=== PATIENT | male | born 1970 | race Caucasian/White ===

== ENCOUNTER 2019-06-12 13:28 | Emergency (ER) | payer MEDICARE, MEDICAID ==
[~2019-06-12] VITALS: Ht 162.6 cm; Wt 72.0 kg
[2019-06-12] MEDS ORDERED: LORazepam 1MG TABLET PO ONE (13:30)
--- NOTE | 2019-06-12 13:37 | NUR ---
PT BIB BY JOS[facility] FOR SOB. PT IS 100% ON ROOM AIR. PT STATED "I HAVE ANXIETY OVER MY LIVING SITUATION AND THIS VIRUS". EKG COMPLETE. PT IS CONNECTED TO ANSWERING SERVICE AGENT.
[2019-06-12] MEDS ORDERED: LORazepam 1MG TABLET ONE (13:40)
--- NOTE | 2019-06-12 13:43 | NUR ---
PT MEDICATD PER MAR
[2019-06-12 13:56] LABS: BASOPHILS # (AUTO) 0.02 x10^3/uL (0-0.1); BASOPHILS % (AUTO) 0 % (0-1); EOSINOPHILS # (AUTO) 0.26 x10^3/uL (0-0.4); EOSINOPHILS % (AUTO) 4 % (1-7); LYMPHOCYTES # (AUTO) 1.73 x10^3/uL (1-3.4); LYMPHOCYTES % (AUTO) 23 % (22-44); MD NO; MEAN CORPUSCULAR HEMOGLOBIN 28.5 pg (27.5-34.5); MEAN CORPUSCULAR VOLUME 89.1 fL (81-97); MONOCYTES # (AUTO) 0.25 x10^3/uL (0.2-0.8); MONOCYTES % (AUTO) 3 % (2-9); NEUTROPHILS % (AUTO) 70 % (42-75); PLATELET COUNT 506 x10^3/uL (130-400); RED BLOOD COUNT 4.73 x10^6/uL (4.38-5.82); RED CELL DISTRIBUTION WIDTH 17.4 % (9.4-14.8)
[2019-06-12 14:04] LABS: ALBUMIN 3.7 g/dL (3.4-5.0); ANION GAP 9 mmol/L (5-15); CALCIUM 9.3 mg/dL (8.5-10.1); CHLORIDE 107 mmol/L (98-107); CREATININE 0.93 mg/dL (0.7-1.3)
[2019-06-12 14:08] LABS: TROPONIN I < 0.015 ng/mL (0.000-0.045)
[2019-06-12 15:04] VITALS: BP 156/97
== END 2019-06-12 15:06 | disposition home or self-care (01) ==
LOC: ED 14:19
DX: F41.1 Generalized anxiety disorder (principal); I10 Essential (primary) hypertension; F17.200 Nicotine dependence, unspecified, uncomplicated; E78.00 Pure hypercholesterolemia, unspecified; R94.31 Abnormal electrocardiogram [ECG] [EKG]
CPT/HCPCS: 36415; 71045; 80048; 82040; 84484; 85025; 93005; 99285

== ENCOUNTER 2019-06-17 11:47 | Emergency (ER) | payer MEDICARE, MEDICAID ==
[~2019-06-17] VITALS: Ht 162.6 cm; Wt 75.5 kg
[2019-06-17] MEDS ORDERED: FLUO90CA5 PO (12:15)
[2019-06-17] MEDS ORDERED: CEPH-368 PO (12:15)
[2019-06-17] MEDS ORDERED: ATOR-2 PO (12:15)
[2019-06-17] MEDS ORDERED: OMEP-110 PO (12:15)
[2019-06-17] MEDS ORDERED: PROP5POW PO (12:15)
[2019-06-17] MEDS ORDERED: AMLO10TA8 PO (12:15)
[2019-06-17] MEDS ORDERED: GABA300S PO (12:15)
[2019-06-17] MEDS ORDERED: QUET25TA70 PO (12:15)
[2019-06-17] MEDS ORDERED: TAMS-11 PO (12:15)
[2019-06-17] MEDS ORDERED: ONDANSETRON 2MG/ML, 2ML ONE (12:19)
[2019-06-17] MEDS ORDERED: ONDANSETRON 2MG/ML, 2ML IVPush ONE (12:30)
[2019-06-17] MEDS ORDERED: SODIUM CHLORIDE 0.9% 1,000ML IVBOLUS ONE (12:30)
[2019-06-17] MEDS ORDERED: SODIUM CHLORIDE FLUSH 10ML SYR IVF ONE (12:30)
--- NOTE | 2019-06-17 12:45 | NUR ---
PT TO ROOM 35 VIA [facility], BUT WALKING WITHOUT DIFF. PT BEING SEEN TODAY, DUE TO N/V X2 HOURS, AND HAS BEEN EXPOSED TO HIS ROOMMATE WHOM HAS FLU LIKE SYMPTOMS AND WAS OFFICIALLY TESTED FOR COVID TODAY. PT TOOK CRYSTAL METH AND HEROINE YESTERDAY, AND SMOKED MARIJUANA TODAY. PT VERY ANXIOUS FROM ALL THE DRUGS AND IS REQUESTING SOMETHING TO HELP CALM HIM DOWN. IV PLACED, LAB DRAWN, EKG DONE, MONITOR APPLIED, GOWN ON, WARM BLANKET AND CALL LIGHT GIVEN. IV MEDICATIONS GIVEN AND BOLUS STARTED WITHOUT DIFF. WILL CONTINUE TO MONITOR.
[2019-06-17 12:46] LABS: MEAN CORPUSCULAR HEMOGLOBIN 28.7 pg (27.5-34.5); MEAN CORPUSCULAR HGB CONC 33.1 g/dL (33.2-36.2); MEAN CORPUSCULAR VOLUME 86.6 fL (81-97); MEAN PLATELET VOLUME 7.1 fL (7.4-10.4); PLATELET COUNT 502 x10^3/uL (130-400); RED BLOOD COUNT 4.43 x10^6/uL (4.38-5.82); RED CELL DISTRIBUTION WIDTH 17.2 % (9.4-14.8)
[2019-06-17 12:51] LABS: RAPID INFLUENZA A Negative (Negative); RAPID INFLUENZA B Negative (Negative)
[2019-06-17 12:54] LABS: ALANINE AMINOTRANSFERASE 22 U/L (12-78); ANION GAP 6 mmol/L (5-15); CALCIUM 9.6 mg/dL (8.5-10.1); CHLORIDE 102 mmol/L (98-107)
[2019-06-17 12:56] LABS: ALKALINE PHOSPHATASE 91 U/L (45-117); BILIRUBIN,TOTAL 0.8 mg/dL (0.2-1.0); TOTAL PROTEIN 7.7 g/dL (6.4-8.2)
[2019-06-17 13:09] LABS: MD YES
[2019-06-17 13:39] LABS: BAND#(MANUAL) 1.71 x10^3/uL; BANDS%(MANUAL) 14 % (0-7); LYMPH#(MANUAL) 0.49 x10^3/uL (1-3.4); LYMPHS% (MANUAL) 4 % (22-44); MONOS#(MANUAL) 1.34 x10^3/uL (0.3-2.7); MONOS% (MANUAL) 11 % (2-9); SEG#(MANUAL) 8.66 x10^3/uL (1.8-6.8); SEGS% (MANUAL) 71 % (42-75)
[2019-06-17 13:40] LABS: <PLATELET ESTIMATE> INCREASED; <PLT MORPHOLOGY> NORMAL PLT MORPH; <RBC MORPHOLOGY> NORMAL
[2019-06-17 14:31] VITALS: BP 130/74
== END 2019-06-17 14:34 | disposition home or self-care (01) ==
LOC: ED 13:02
DX: K29.00 Acute gastritis without bleeding (principal); Z20.828 Contact with and (suspected) exposure to other viral communicable diseases; B34.9 Viral infection, unspecified; F12.10 Cannabis abuse, uncomplicated; F15.10 Other stimulant abuse, uncomplicated; F11.10 Opioid abuse, uncomplicated; I10 Essential (primary) hypertension; R11.2 Nausea with vomiting, unspecified; R10.10 Upper abdominal pain, unspecified
CPT/HCPCS: 36415; 71045; 80053; 85025; 87400; 93005; 96361; 96374; 99285; J2405; J7030; U0001

== ENCOUNTER 2019-06-20 17:11 | Emergency (ER) | payer MEDICARE, MEDICAID ==
[~2019-06-20] VITALS: Ht 162.6 cm; Wt 69.4 kg
[~2019-06-20 17:11] MED LIST: AMLO10TA8 PO; ATOR-2 PO; CEPH-368 PO; FLUO90CA5 PO; GABA300S PO; OMEP-110 PO; PROP5POW PO; QUET25TA70 PO; TAMS-11 PO
[2019-06-20 17:14] VITALS: BP 132/91
--- NOTE | 2019-06-20 17:52 | NUR ---
UPON ARRIVAL TO ROOM PT'S BELONGINGS SECURED IN LOCKER AND ROOM EQUIPMENT SECURED BEHIND PULL DOWN DOORS. SITTER IN SITE OF PT.
--- NOTE | 2019-06-20 18:14 | NUR ---
PT STATES HE FEELS LIKE TAKING PILLS BECAUSE EVERYONE IS HOSTILE TO HIM AND WON'T HELP HIM. PT DISCHARGED FROM [facility] AFTER 3-DAY VISIT WHERE HE SAYS THEY DID NOTHING TO HELP HIM AND GAVE HIM NO MEDS BUT ZOFRAN AND PEPCID
--- NOTE | 2019-06-20 18:29 | NUR ---
LABS OBTAINED. PT ASKING FOR FOOD AND DINNER TRAY ORDERED.
[2019-06-20 18:45] LABS: BASOPHILS # (AUTO) 0.02 x10^3/uL (0-0.1); BASOPHILS % (AUTO) 0 % (0-1); EOSINOPHILS # (AUTO) 0.18 x10^3/uL (0-0.4); EOSINOPHILS % (AUTO) 3 % (1-7); LYMPHOCYTES % (AUTO) 23 % (22-44); MD NO; MEAN CORPUSCULAR HEMOGLOBIN 28.4 pg (27.5-34.5); MEAN CORPUSCULAR HGB CONC 32.3 g/dL (33.2-36.2); MEAN CORPUSCULAR VOLUME 87.9 fL (81-97); MEAN PLATELET VOLUME 7.4 fL (7.4-10.4); MONOCYTES # (AUTO) 0.44 x10^3/uL (0.2-0.8); MONOCYTES % (AUTO) 6 % (2-9); NEUTROPHILS # (AUTO) 4.83 x10^3/uL (1.8-6.8); NEUTROPHILS % (AUTO) 68 % (42-75); PLATELET COUNT 598 x10^3/uL (130-400); RED BLOOD COUNT 4.55 x10^6/uL (4.38-5.82); RED CELL DISTRIBUTION WIDTH 16.6 % (9.4-14.8)
[2019-06-20 18:46] LABS: ALANINE AMINOTRANSFERASE 21 U/L (12-78); ALBUMIN 3.5 g/dL (3.4-5.0); ANION GAP 8 mmol/L (5-15); CALCIUM 9.4 mg/dL (8.5-10.1); CHLORIDE 106 mmol/L (98-107); CREATININE 0.84 mg/dL (0.7-1.3)
[2019-06-20 18:48] LABS: AMPHETAMINE SCREEN, URINE Negative (Negative); BARBITURATE SCREEN, URINE Negative (Negative); BENZODIAZEPINE SCREEN, URINE Negative (Negative); CANNABINOID SCREEN, URINE Negative (Negative); COCAINE SCREEN, URINE Negative (Negative); METHADONE SCREEN, URINE Negative (Negative); OPIATE SCREEN, URINE Negative (Negative)
[2019-06-20 18:57] LABS: ALKALINE PHOSPHATASE 83 U/L (45-117); BILIRUBIN,TOTAL 0.3 mg/dL (0.2-1.0); TOTAL PROTEIN 7.5 g/dL (6.4-8.2)
[2019-06-20 19:03] LABS: SALICYLATE LEVEL < 1.7 mg/dL (2.8-20.0)
--- NOTE | 2019-06-20 19:06 | NUR ---
REPORT TO PERNELL CALDWELL
--- NOTE | 2019-06-20 19:10 | NUR ---
PT RESTING IN GURNEY AT THIS TIME. PT WITNESSED AMBULATING TO RESTROOM WITH STEADY GAIT. SITTER OUTSIDE OF ROOM FOR DIRECT OBSERVATION OF PT.
[2019-06-20] MEDS ORDERED: LORazepam 1MG TABLET ONE (19:53)
--- NOTE | 2019-06-20 19:59 | NUR ---
PT MEDICATED FOR ANXIETY PER MAR.
[2019-06-20] MEDS ORDERED: LORazepam 1MG TABLET PO ONE (20:00)
--- NOTE | 2019-06-20 20:27 | NUR ---
PT RESTING IN VIEW OF NURSES STATION, NO COMPLAINTS AT THIS TIME
--- NOTE | 2019-06-20 21:14 | NUR ---
Packet faxed to all psych facilities and conformation received.
--- NOTE | 2019-06-20 21:33 | NUR ---
[facility] accepts patient to LOCATED WITHIN [facility]. Accepting doctor: Dr. Sims. RTG TOD per [facility].
--- NOTE | 2019-06-20 21:41 | NUR ---
REPORT CALLED TO [facility]
--- NOTE | 2019-06-20 21:52 | NUR ---
JOS[facility] TUCKER 2230, PT RESTING IN VIEW OF RN WITH NO COMPLAINTS
== END 2019-06-20 22:25 ==
LOC: ED 20:50
DX: F33.9 Major depressive disorder, recurrent, unspecified (principal); R45.851 Suicidal ideations; I10 Essential (primary) hypertension; F41.1 Generalized anxiety disorder; E78.00 Pure hypercholesterolemia, unspecified
CPT/HCPCS: 36415; 80053; 80307; 84443; 85025; 99285